=== PATIENT | female | born 1990 | race Caucasian/White ===

== ENCOUNTER 2024-06-06 20:13 | Emergency (ER) | payer OTHER, SELFPAY ==
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
[2024-06-06 20:52] VITALS: BP 111/70; PULSE 80; RESP 18; TEMP 36.8; O2SAT 98; BMI 27.5
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
--- NOTE | 2024-06-06 20:54 | ECG_ITS ---
Test Reason : chest pain Blood Pressure : */* mmHG Vent. Rate : 69 BPM Atrial Rate : 69 BPM P-R Int : 150 ms QRS Dur : 94 ms QT Int : 376 ms P-R-T Axes : 40 5 11 degrees QTcB Int : 402 ms Normal sinus rhythm Minimal voltage criteria for LVH, may be normal variant ( R in aVL ) Borderline ECG No previous ECGs available Referred By: Rosmery Vieyra Electronically Signed By: NEELIMA BANKS MD
[2024-06-06 21:28] LABS: MANUAL DIFF FLAG NO
[2024-06-06 21:31] LABS: Carbon Monoxide Refer to POC result
[2024-06-06 21:32] LABS: Venous Blood Gas Refer to POC result
[2024-06-06 21:32] LABS: VBG Base Excess 2.4 mmol/L; VBG HCO3 23 mmol/L (22-26); VBG pCO2 25 mmHg; VBG pH 7.57 (7.32-7.43); VBG pO2 77 mmHg
[2024-06-06 21:32] LABS: Carbon Monoxide POC 2.6 %
[2024-06-06 21:34] LABS: Basophils Percent Auto 0.4 % (0-2); Eosinophils Absolute Auto 0.1 X10*3/uL (0.0-0.4); Eosinophils Percent Auto 1.5 % (0-4); Hematocrit 32.7 % (37.0-47.0); Hemoglobin 10.8 g/dl (12.0-16.0); Imm Gran Abs Auto 0.01 X10*3/uL (0.00-0.03); Imm Gran Pct Auto 0.2 % (0.0-0.4); Lymphocytes Absolute Auto 1.1 X10*3/uL (1.2-4.9); Lymphocytes Percent Auto 22.9 % (20-40); Mean Corpuscular Hemoglobin 26.5 pg (27.0-33.0); Mean Corpuscular Volume 80.1 fL (80.0-98.0); Mean Platelet Volume 9.3 fL (9.4-12.3); Monocytes Absolute Auto 0.4 X10*3/uL (0.1-1.2); Monocytes Percent Auto 8.2 % (2-11); Neutrophils Absolute Auto 3.2 x10*3/uL (2.0-8.3); Neutrophils Percent Auto 66.8 % (45-73); Platelet Count 197 X10*3/uL (160-400); Red Blood Count 4.08 X10*6/uL (4.20-5.50); Red Cell Distribution Width 13.4 % (11.0-16.0); White Blood Count 4.8 X10*3/uL (4.8-10.8)
[2024-06-06 21:46] LABS: Blood Urea Nitrogen 18 mg/dL (9-16); Calcium 8.7 mg/dL (8.4-10.2); Creatinine Clr Calc Pharmacy 121.6; Estimated Glomerular Filt Rate > 60; Glucose Random 85 mg/dL (60-115)
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
[2024-06-06] MEDS: Albuterol Sulfate 90 MCG 8 GM INHALER 4 PUFF INHALE (23:06)
[2024-06-06] MEDS: predniSONE 20 MG TABLET 40 MG PO (23:06)
[2024-06-06 23:25] VITALS: BP 100/56; PULSE 75; RESP 18; TEMP 36.8; O2SAT 99
[2024-06-06 23:36] LABS: Anion Gap 12 (12-20); Carbon Dioxide 21 mmol/L (22-29); Chloride 110 mmol/L (96-108); Potassium 3.7 mmol/L (3.3-5.1); Sodium 139 mmol/L (135-145)
== END 2024-06-06 23:27 | disposition home or self-care (01) ==
PROVIDERS: Registered Nurse Emergency; Emergency Provider Internal Medicine
DX: T59.811A Toxic effect of smoke, accidental (unintentional), initial encounter (principal); J45.909 Unspecified asthma, uncomplicated; Y92.89 Other specified places as the place of occurrence of the external cause
CPT/HCPCS: 36415; 71046; 80048; 82375; 82803; 85025; 93005; 99283; 99284

== ENCOUNTER → 2024-06-06 20:54 | Outpatient (BNV) | payer OTHER, SELFPAY | PROVIDERS: Emergency Provider Internal Medicine; Visit Provider Radiology Diagnostic Radiology | DX: J70.5 Respiratory conditions due to smoke inhalation (principal) | CPT/HCPCS: 71046 ==

== ENCOUNTER → 2024-06-06 20:54 | Outpatient (BNV) | payer OTHER, SELFPAY | PROVIDERS: Emergency Provider Internal Medicine; Visit Provider Internal Medicine Cardiovascular Disease | DX: R07.9 Chest pain, unspecified (principal) | CPT/HCPCS: 93010 ==

== ENCOUNTER 2024-11-18 09:08 | Emergency (ER) | payer SELFPAY ==
--- NOTE | 2024-11-18 | ECG_ITS ---
Test Reason : chest pain Blood Pressure : */* mmHG Vent. Rate : 73 BPM Atrial Rate : 73 BPM P-R Int : 136 ms QRS Dur : 92 ms QT Int : 380 ms P-R-T Axes : 5 13 12 degrees QTcB Int : 418 ms Normal sinus rhythm Normal ECG When compared with ECG of 06-Jun-2024 21:13, No significant change was found Referred By: Generic ED Physician Electronically Signed By: FRANCIA PALOMO
--- NOTE | ~2024-11-18 | XR_ITS ---
EXAMINATION: XR CHEST CLINICAL INFORMATION: cp and dizziness COMPARISON: 06/06/2024. TECHNIQUE: AP view of the chest was obtained. FINDINGS: The cardiac, hilar, and mediastinal contours are normal. The lungs are clear bilaterally. No pneumothorax or effusion. No focal osseous or soft tissue abnormality. XR/XR chest 1V IMPRESSION: No active pulmonary disease. Electronically signed by: Ajith Johnson MD 11/18/2024 09:31 AM EDT
--- NOTE | ~2024-11-18 | CT_ITS ---
EXAMINATION: CT ANGIOGRAM CHEST CLINICAL INFORMATION: Chest pain, elevated d-dimer. COMPARISON: Same-day chest x-ray TECHNIQUE: Multiple axial images were obtained through the chest after the administration of 65 mL of Omnipaque 350 intravenous contrast. Extensive vascular post-processing including two-dimensional and three-dimensional reformatted images were created and reviewed on an independent workstation. This CT examination was performed using dose optimization techniques as appropriate, variously including the following: *Automated exposure control *Adjustment of mA and/or kV according to patient size (this includes techniques or standardized protocols for targeted exams where dose is matched to indication/reason for exam; i.e. extremities or head) *Use of iterative reconstruction technique FINDINGS: QUALITY OF STUDY/CONTRAST BOLUS: Adequate PULMONARY ARTERIES: No filling defects are evident in the pulmonary arteries. THORACIC AORTA: No aneurysm or dissection. LUNGS AND PLEURA: There is no pleural effusion. There is mild dependent atelectasis. MEDIASTINUM: Unremarkable CORONARY ARTERY CALCIFICATION: None demonstrated CHEST WALL/AXILLA: No axillary or internal mammary lymphadenopathy. UPPER ABDOMEN: Unremarkable BONES: Unremarkable CT/CT angio chest PE protocol IMPRESSION: No evidence of pulmonary artery embolus or other acute pulmonary disease. Fleischner guidelines were followed. Electronically signed by: Marty Contreras MD 11/18/2024 12:43 PM EDT
--- NOTE | ~2024-11-18 | CT_ITS ---
EXAMINATION: CT HEAD WITHOUT CONTRAST CLINICAL INFORMATION: Dizziness. COMPARISON: None available. TECHNIQUE: Contiguous axial imaging was performed from the skull base to vertex without intravenous administration of contrast. This CT examination was performed using dose optimization techniques as appropriate, variously including the following: *Automated exposure control *Adjustment of mA and/or kV according to patient size (this includes techniques or standardized protocols for targeted exams where dose is matched to indication/reason for exam; i.e. extremities or head) *Use of iterative reconstruction technique FINDINGS: There is no evidence of intracranial hemorrhage or extra-axial fluid collection. There is no mass effect, or edema. No CT evidence of acute territorial infarct. Ventricles, sulci, and cisterns are normal in size and configuration for patient age. No hydrocephalus. No midline shift. Negative hyperdense MCA sign. Negative insular ribbon sign. No significant white matter attenuation abnormality. Normal pituitary. Globes and orbital contents image normally. No extracranial soft tissue abnormalities. The paranasal sinuses, mastoid air cells, and tympanic cavities are normally aerated. No suspicious bony abnormalities. There are no acute fractures evident. CT/CT head/brain wo IV con IMPRESSION: No acute intracranial abnormality. Electronically signed by: Ajith Johnson MD 11/18/2024 10:14 AM EDT RP
[2024-11-18 09:22] VITALS: BP 115/78; PULSE 71; PULSE 72; RESP 20; TEMP 37.2; O2SAT 100
[2024-11-18 09:23] VITALS: BP 119/77; BP 119/80; PULSE 90; PULSE 92
[2024-11-18 09:25] VITALS: BP 119/80; PULSE 73; RESP 20; TEMP 37; O2SAT 96; BMI 32.6
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
[2024-11-18 10:11] LABS: INTERNATIONAL NORM RATIO 1.2 (0.9-1.1); Prothrombin Time 13.5 SEC (10.9-12.4)
[2024-11-18 10:13] LABS: D Dimer High Sensitivity 351 NG/ML
[2024-11-18 10:15] LABS: Hematocrit 30.9 % (37.0-47.0); Hemoglobin 10.0 g/dl (12.0-16.0); Imm Gran Abs Auto 0.02 X10*3/uL (0.00-0.03); Imm Gran Pct Auto 0.3 % (0.0-0.4); Lymphocytes Absolute Auto 1.4 X10*3/uL (1.2-4.9); Mean Corpuscular HGB Conc 32.4 g/dl (31.0-35.0); Mean Corpuscular Hemoglobin 25.1 pg (27.0-33.0); Mean Corpuscular Volume 77.4 fL (80.0-98.0); NRBC Abs Auto 0.000 X10*3/uL (0.0-0.012); NRBC Pct Auto 0.0 /100WBC (0.0-0.2); Red Blood Count 3.99 X10*6/uL (4.20-5.50)
[2024-11-18 10:16] LABS: Platelet Count 168 X10*3/uL (160-400); White Blood Count 6.5 X10*3/uL (4.8-10.8)
[2024-11-18 10:29] LABS: Alanine Aminotransferase 13 U/L (0-31); Albumin Level 3.8 g/dL (3.5-5.0); Alkaline Phosphatase 77 U/L (39-117); Anion Gap 11 (12-20); Aspartate Amino Transferase 39 U/L (5-31); Blood Urea Nitrogen 13 mg/dL (9-16); Calcium 8.7 mg/dL (8.4-10.2); Carbon Dioxide 23 mmol/L (22-29); Chloride 110 mmol/L (96-108); Creatinine Clr Calc Pharmacy 150.3; Estimated Glomerular Filt Rate > 60; Lipase 9 U/L (8-78); Potassium 4.6 mmol/L (3.3-5.1); Sodium 139 mmol/L (135-145); Total Protein 7.6 g/dL (6.5-8.0)
[2024-11-18 10:34] LABS: Troponin-I High Sensitivity < 2.7 ng/L (<3.5-17.0)
[2024-11-18 10:41] LABS: Resp Syncy Virus RNA Qual PCR NEGATIVE (Negative); SARS COV2 PCR INHOUSE NEGATIVE (Negative)
[2024-11-18] MEDS: iohexoL 350 MG/ML 100 ML INFUS..BTL IV (12:17)
[2024-11-18 13:27] VITALS: BP 97/63; PULSE 72; RESP 16; TEMP 36.6; O2SAT 98
[2024-11-18 13:46] LABS: Appearance Urine Clear; Glucose Urine UA Negative (Negative); PH 7.0 (5.0-9.0); Specific Gravity - Urine >= 1.030 (1.005-1.025)
[2024-11-18 13:49] LABS: UPreg QC Valid YES
[2024-11-18 13:57] LABS: Cannabinoid Screen Urine POSITIVE (Not Detect)
[2024-11-18 15:46] VITALS: BP 97/63; PULSE 72; RESP 16; TEMP 36.6; O2SAT 98
== END 2024-11-18 15:51 | disposition home or self-care (01) ==
PROVIDERS: Emergency Provider Emergency Medicine
DX: L03.113 Cellulitis of right upper limb (principal); R07.89 Other chest pain; R42 Dizziness and giddiness; R51.9 Headache, unspecified; M54.2 Cervicalgia; Z51.81 Encounter for therapeutic drug level monitoring; Z03.818 Encounter for observation for suspected exposure to other biological agents ruled out; Z79.899 Other long term (current) drug therapy
CPT/HCPCS: 36415; 70450; 71045; 71275; 80048; 80076; 80307; 81003; 81025; 83690; 84484; 84702; 85025; 85379; 85610; 87637; 93005; 99285; Q9967

== ENCOUNTER → 2024-11-18 09:16 | Outpatient (BNV) | payer SELFPAY | PROVIDERS: Emergency Provider Emergency Medicine; Visit Provider Internal Medicine | DX: R07.89 Other chest pain (principal) | CPT/HCPCS: 93010 ==

== ENCOUNTER → 2024-11-18 09:17 | Outpatient (BNV) | payer OTHER, SELFPAY | PROVIDERS: Emergency Provider Emergency Medicine; Visit Provider Radiology Diagnostic Radiology | DX: R07.89 Other chest pain (principal); R79.1 Abnormal coagulation profile | CPT/HCPCS: 70450; 71045; 71275 ==